=== PATIENT | female | born 1985 | race Caucasian/White ===

== ENCOUNTER 2017-05-29 17:28 | Emergency (ER) | payer MEDICAID | END 2017-05-29 17:52 | disposition home or self-care (01) | LOC: E/R 17:52 | DX: J32.9 Chronic sinusitis, unspecified (principal); R07.0 Pain in throat | CPT/HCPCS: 99284; Z7502 ==

== ENCOUNTER 2017-08-21 21:30 | Emergency (ER) | payer MEDICAID ==
[2017-08-21 23:19] LABS: URINE BLOOD (Dip) POC 2+ (NEGATIVE); URINE GLUCOSE (Dip) POC Negative (NEGATIVE); URINE KETONES (Dip) POC Negative (NEGATIVE); URINE LEUKOCYTE EST (Dip) POC 1+ (NEGATIVE); URINE NITRITE (Dip) POC Negative (NEGATIVE); URINE TOTAL PROTEIN POC Negative (NEGATIVE)
== END 2017-08-22 01:17 | disposition home or self-care (01) ==
LOC: FTE 08-22 01:17
DX: N30.01 Acute cystitis with hematuria (principal); R10.2 Pelvic and perineal pain
CPT/HCPCS: 81003; 81025; 99283